=== PATIENT | male | born 1995 | race Caucasian/White ===

== ENCOUNTER 2018-03-27 12:51 | Emergency (ER) | payer SELFPAY, OTHER ==
[2018-03-27] MEDS: IBUPROFEN 800 MG TAB PO (13:35)
== END 2018-03-27 13:38 | disposition home or self-care (01) ==
LOC: M ED 12:51
DX: M25.511 Pain in right shoulder (principal); Z88.0 Allergy status to penicillin
CPT/HCPCS: 99282

== ENCOUNTER 2018-04-27 09:15 | Inpatient (IN) | payer SELFPAY ==
[2018-04-27] MEDS: OXAZEPAM 10 MG CAP PO (09:30)
[2018-04-27 09:44] LABS: HEMATOCRIT 43.1 % (42.0-52.0); MEAN CORPUSCULAR HEMOGLOBIN 31.7 pg (27.0-33.0); MEAN CORPUSCULAR HGB CONC 34.8 g/dl (32.0-36.5); MEAN CORPUSCULAR VOLUME 91.1 fl (80.0-96.0); PLATELET COUNT, AUTOMATED 306 10^3/uL (150-450); RED BLOOD COUNT 4.73 10^6/uL (4.30-6.10); RED CELL DISTRIBUTION WIDTH 13.1 % (11.5-14.5); WHITE BLOOD COUNT 9.7 10^3/uL (4.0-10.0)
[2018-04-27 10:30] LABS: ACETAMINOPHEN LEVEL < 2.0 UG/ML (10.0-30.0); ALBUMIN 4.3 GM/DL (3.2-5.2); ALBUMIN/GLOBULIN RATIO 1.34 (1.00-1.93); ALKALINE PHOSPHATASE 89 U/L (45-117); ALT/SGPT 28 U/L (12-78); ANION GAP 11 MEQ/L (8-16); AST/SGOT 19 U/L (7-37); BILIRUBIN,DIRECT < 0.1 MG/DL (0.0-0.2); BILIRUBIN,TOTAL 0.3 MG/DL (0.2-1.0); BLOOD UREA NITROGEN 11 MG/DL (7-18); CALCIUM LEVEL 8.9 MG/DL (8.5-10.1); CARBON DIOXIDE LEVEL 22 MEQ/L (21-32); CHLORIDE LEVEL 111 MEQ/L (98-107); CREATININE FOR GFR 1.09 MG/DL (0.70-1.30); ETHYL ALCOHOL (ETHANOL) 0.169 % (0.000-0.010); GLOMERULAR FILTRATION RATE > 60.0 (>60); GLUCOSE, FASTING 83 MG/DL (70-100); POTASSIUM SERUM 3.9 MEQ/L (3.5-5.1); SALICYLATE LEVEL 4.1 MG/DL (5.0-30.0); SODIUM LEVEL 144 MEQ/L (136-145); TOTAL PROTEIN 7.5 GM/DL (6.4-8.2)
[2018-04-27 11:08] LABS: AMPHETAMINES LEVEL URINE NEGATIVE (NEGATIVE); BARBITURATES URINE NEGATIVE (NEGATIVE); BENZODIAZEPINES URINE NEGATIVE (NEGATIVE); CANNABINOIDS URINE POSITIVE (NEGATIVE); COCAINE METABOLITE URINE POSITIVE (NEGATIVE); METHADONE URINE NEGATIVE (NEGATIVE); OPIATES URINE NEGATIVE (NEGATIVE); PHENCYCLIDINE URINE NEGATIVE (NEGATIVE)
[2018-04-27] MEDS: NICOTINE 21MG/24HR 1 EA TRANSDERMAL TD (15:00)
[2018-04-27] MEDS: IBUPROFEN 600 MG TAB PO (18:00)
[2018-04-27] MEDS ORDERED: MOM 30ML SUSPENSION UDC PO (20:30)
[2018-04-27] MEDS ORDERED: ACETAMINOPHEN TAB 650MG DOSE (2X325MG) PO (20:30)
[2018-04-27] MEDS ORDERED: MAALOX 30 ML SUSP *UDC PO (20:30)
[2018-04-27] MEDS: THIAMINE 100 MG TAB PO (21:00)
[2018-04-27] MEDS: OLANZapine ORAL DISINTEGRATING TAB 5MG PO (21:03)
[2018-04-28] MEDS: MULTIVITAMINS/MINERALS THERAP 1 TAB PO (08:09)
[2018-04-28] MEDS: FOLIC ACID 1 MG TAB PO (08:09)
[2018-04-28] MEDS: THIAMINE 100 MG TAB PO ×2 (08:09→20:50)
[2018-04-28] MEDS: OLANZapine ORAL DISINTEGRATING TAB 5MG PO ×2 (10:09→20:50)
[2018-04-28] MEDS: NICOTINE 21MG/24HR 1 EA TRANSDERMAL TD (11:09)
[2018-04-28] MEDS ORDERED: IBUPROFEN 400 MG TAB PO (23:30)
[2018-04-29] MEDS: NICOTINE 21MG/24HR 1 EA TRANSDERMAL TD (08:17)
[2018-04-29] MEDS: MULTIVITAMINS/MINERALS THERAP 1 TAB PO (08:17)
[2018-04-29] MEDS: THIAMINE 100 MG TAB PO ×2 (08:17→21:43)
[2018-04-29] MEDS: FOLIC ACID 1 MG TAB PO (08:17)
[2018-04-29] MEDS: OLANZapine ORAL DISINTEGRATING TAB 5MG PO ×2 (08:17→21:43)
[2018-04-29] MEDS: traZODone 50 MG TAB PO (22:53)
[2018-04-30] MEDS: NICOTINE 21MG/24HR 1 EA TRANSDERMAL TD (08:22)
[2018-04-30] MEDS: THIAMINE 100 MG TAB PO (08:22)
[2018-04-30] MEDS: LORazepam 2 MG TAB PO (08:23)
[2018-04-30] MEDS: FOLIC ACID 1 MG TAB PO (08:23)
[2018-04-30] MEDS: MULTIVITAMINS/MINERALS THERAP 1 TAB PO (08:23)
== END 2018-04-30 13:50 | disposition home or self-care (01) | DRG 754 ==
LOC: M PSY 04-28 18:26 → M ED 09:15 → M ED INP 20:25 → M PSY 22:46
DX: F32.9 Major depressive disorder, single episode, unspecified (principal); F10.10 Alcohol abuse, uncomplicated; F12.10 Cannabis abuse, uncomplicated; F17.210 Nicotine dependence, cigarettes, uncomplicated; M79.671 Pain in right foot; F14.10 Cocaine abuse, uncomplicated; Z63.4 Disappearance and death of family member; Z88.0 Allergy status to penicillin

== ENCOUNTER 2018-06-03 13:09 | Emergency (ER) | payer MEDICAID, SELFPAY ==
[2018-06-03 14:41] LABS: CONTROL LINE MONO INT CTR LINE PRESENT; MONO SCRN POSITIVE (NEGATIVE)
== END 2018-06-03 15:08 | disposition home or self-care (01) ==
LOC: M ED 13:09
DX: B27.90 Infectious mononucleosis, unspecified without complication (principal); F33.9 Major depressive disorder, recurrent, unspecified; Z88.0 Allergy status to penicillin; F17.210 Nicotine dependence, cigarettes, uncomplicated
CPT/HCPCS: 86308

== ENCOUNTER 2018-06-06 02:51 | Emergency (ER) | payer MEDICAID, SELFPAY ==
[2018-06-06 03:17] LABS: BEDSIDE GLUCOSE 87 MG/DL (70-105)
[2018-06-06 03:18] LABS: HEMATOCRIT 45.3 % (42.0-52.0); HEMOGLOBIN 15.4 g/dl (13.5-17.5); MEAN CORPUSCULAR HEMOGLOBIN 31.1 pg (27.0-33.0); MEAN CORPUSCULAR VOLUME 91.5 fl (80.0-96.0); PLATELET COUNT, AUTOMATED 215 10^3/uL (150-450); RED BLOOD COUNT 4.95 10^6/uL (4.30-6.10); WHITE BLOOD COUNT 10.5 10^3/uL (4.0-10.0)
[2018-06-06 03:19] LABS: ADD MANUAL DIFFER YES; DIFF SLIDE NUMBER 99; POSITIVE DIFF POS FLAG; POSITIVE MORPH POS FLAG
[2018-06-06] MEDS: NS 1,000 ML IV ×2 (03:30)
[2018-06-06 03:39] LABS: ATYPICAL LYMPH 4 % (0-5); EOSINOPHILS 1 % (0-5); LYMPHOCYTES 53 % (16-52); MONOCYTES 5 % (0-8); NEUTROPHILS 37 % (35-75); PLATELET ESTIMATE NORMAL (NORMAL)
[2018-06-06] MEDS: CHARCOAL ACTIVATED LIQUID 25 GM/120 ML BTL PO ×2 (03:39)
[2018-06-06 04:15] LABS: ALBUMIN 3.6 GM/DL (3.2-5.2); ALBUMIN/GLOBULIN RATIO 0.88 (1.00-1.93); ALKALINE PHOSPHATASE 141 U/L (45-117); ALT/SGPT 72 U/L (12-78); ANION GAP 9 MEQ/L (8-16); AST/SGOT 27 U/L (7-37); BILIRUBIN,DIRECT < 0.1 MG/DL (0.0-0.2); BILIRUBIN,TOTAL 0.2 MG/DL (0.2-1.0); BLOOD UREA NITROGEN 12 MG/DL (7-18); CALCIUM LEVEL 8.2 MG/DL (8.5-10.1); CARBON DIOXIDE LEVEL 26 MEQ/L (21-32); CHLORIDE LEVEL 110 MEQ/L (98-107); CPK CREATINE PHOSPHOKINASE 68 U/L (39-308); CREATININE FOR GFR 1.01 MG/DL (0.70-1.30); ETHYL ALCOHOL (ETHANOL) 0.156 % (0.000-0.010); GLOMERULAR FILTRATION RATE > 60.0 (>60); GLUCOSE, FASTING 90 MG/DL (70-100); POTASSIUM SERUM 3.9 MEQ/L (3.5-5.1); SALICYLATE LEVEL 4.4 MG/DL (5.0-30.0); SODIUM LEVEL 145 MEQ/L (136-145); TOTAL PROTEIN 7.7 GM/DL (6.4-8.2)
[2018-06-06 04:16] LABS: ACETAMINOPHEN LEVEL < 2.0 UG/ML (10.0-30.0)
[2018-06-06 04:24] LABS: AMPHETAMINES LEVEL URINE POSITIVE (NEGATIVE); BARBITURATES URINE NEGATIVE (NEGATIVE); BENZODIAZEPINES URINE NEGATIVE (NEGATIVE); CANNABINOIDS URINE POSITIVE (NEGATIVE); COCAINE METABOLITE URINE NEGATIVE (NEGATIVE); METHADONE URINE NEGATIVE (NEGATIVE); OPIATES URINE NEGATIVE (NEGATIVE); PHENCYCLIDINE URINE NEGATIVE (NEGATIVE)
[2018-06-06 05:28] LABS: GOLD SPEC TUBE RECIEVED
== END 2018-06-06 16:53 ==
LOC: M ED 02:51
DX: R45.851 Suicidal ideations (principal); T40.2X2A Poisoning by other opioids, intentional self-harm, initial encounter; T51.92XA Toxic effect of unspecified alcohol, intentional self-harm, initial encounter; Y92.9 Unspecified place or not applicable; Y93.9 Activity, unspecified; F12.10 Cannabis abuse, uncomplicated; F11.10 Opioid abuse, uncomplicated; Z72.0 Tobacco use; Z88.0 Allergy status to penicillin
CPT/HCPCS: 93005

== ENCOUNTER → 2018-11-30 | Outpatient (CLI) | payer MEDICAID, OTHER ==
[~2018-11-30] MED LIST: BENA25CA4 PO; HYDR-3363 PO; IBUP-1022 PO; MAGICMW MT
== END ==
LOC: M OUTALCOH 08:42
PROVIDERS: ATTEND Psychiatry & Neurology Psychiatry
DX: F12.10 Cannabis abuse, uncomplicated (principal); F10.20 Alcohol dependence, uncomplicated

== ENCOUNTER → 2018-12-11 | Outpatient (RCR) | payer MEDICAID, SELFPAY | LOC: M OUTALCOH 14:53 | PROVIDERS: ATTEND Psychiatry & Neurology Psychiatry | DX: F12.10 Cannabis abuse, uncomplicated (principal); F10.20 Alcohol dependence, uncomplicated; F17.200 Nicotine dependence, unspecified, uncomplicated ==

== ENCOUNTER 2019-01-09 16:00 | Outpatient (RCR) | payer MEDICAID, SELFPAY | END 2019-01-11 | LOC: M OUTALCOH 16:00 | PROVIDERS: ATTEND Psychiatry & Neurology Psychiatry | DX: F12.10 Cannabis abuse, uncomplicated (principal); F10.20 Alcohol dependence, uncomplicated; F17.200 Nicotine dependence, unspecified, uncomplicated ==

== ENCOUNTER 2019-01-23 16:00 | Outpatient (RCR) | payer MEDICAID | END 2019-02-10 | LOC: M OUTALCOH 16:00 | PROVIDERS: ATTEND Psychiatry & Neurology Psychiatry | DX: F12.10 Cannabis abuse, uncomplicated (principal); F10.20 Alcohol dependence, uncomplicated; F17.200 Nicotine dependence, unspecified, uncomplicated ==

== ENCOUNTER → 2019-10-25 | Outpatient (REF) | payer OTHER ==
[2019-10-25 17:27] LABS: INFLUENZA A AMPLIFICATION NEGATIVE (NEGATIVE); INFLUENZA B AMPLIFICATION NEGATIVE (NEGATIVE)
== END ==
LOC: M LAB REF 16:17
PROVIDERS: ATTEND Physician Assistant Medical
DX: J11.1 Influenza due to unidentified influenza virus with other respiratory manifestations (principal)

== ENCOUNTER 2019-11-09 22:53 | Emergency (ER) | payer OTHER ==
[~2019-11-09] VITALS: Ht 182.9 cm; Wt 81.8 kg
[2019-11-09] MEDS ORDERED: HALOPERIDOL 5 MG/ML VIAL (J1630) IM STA (23:05)
[2019-11-09] MEDS ORDERED: diphenhydrAMINE INJ 50MG/ML VIAL (J1200) IM STA (23:05)
[2019-11-09] MEDS ORDERED: diphenhydrAMINE INJ 50MG/ML VIAL (J1200) As Ordered ONE (23:05)
[2019-11-09] MEDS ORDERED: HALOPERIDOL 5 MG/ML VIAL (J1630) As Ordered ONE (23:06)
[2019-11-10 01:02] LABS: AMPHETAMINES LEVEL URINE NEGATIVE (NEGATIVE); BARBITURATES URINE NEGATIVE (NEGATIVE); BENZODIAZEPINES URINE NEGATIVE (NEGATIVE); CANNABINOIDS URINE POSITIVE (NEGATIVE); COCAINE METABOLITE URINE NEGATIVE (NEGATIVE); METHADONE URINE NEGATIVE (NEGATIVE); OPIATES URINE NEGATIVE (NEGATIVE); PHENCYCLIDINE URINE NEGATIVE (NEGATIVE)
[2019-11-10] MEDS ORDERED: HALOPERIDOL 5 MG/ML VIAL (J1630) IM STA (01:03)
[2019-11-10 01:40] VITALS: BP 131/71
== END 2019-11-10 01:53 | disposition left against medical advice (07) ==
LOC: M ED 22:53
DX: F10.229 Alcohol dependence with intoxication, unspecified (principal); Y90.1 Blood alcohol level of 20-39 mg/100 ml; F91.9 Conduct disorder, unspecified; Z88.0 Allergy status to penicillin
CPT/HCPCS: 36415; 80307; 96372; 99285; G0480; J1200; J1630

== ENCOUNTER → 2020-01-08 | Outpatient (CLI) | payer OTHER ==
--- NOTE | 2020-01-08 15:01 | REP ---
RIGHT GREAT TOE SERIES: Four views. HISTORY: Question foreign body right great toe. FINDINGS: Comparison study April 27, 2018. Four views of the right great toe show no evidence of opaque foreign body or fracture. Bones, joints and soft tissues are unremarkable. IMPRESSION: No evidence of fracture or opaque foreign body. Electronically Signed by Yoan Dias MD 01/08/2020 03:27 P
== END ==
LOC: M RAD 14:06
PROVIDERS: ATTEND Physician Assistant
DX: M79.674 Pain in right toe(s) (principal)

== ENCOUNTER 2020-01-25 02:12 | Emergency (ER) | payer OTHER ==
[~2020-01-25] VITALS: Ht 180.3 cm; Wt 81.8 kg
[2020-01-25 02:13] VITALS: BP 121/89
[2020-01-25] MEDS ORDERED: LAMO25TA4 (02:21)
[2020-01-25] MEDS ORDERED: LIDOCAINE 1% MDV 20ML VIAL As Ordered ONE (02:57)
[2020-01-25] MEDS ORDERED: LIDOCAINE 1% MDV 50ML VIAL SC ONE (03:00)
== END 2020-01-25 03:35 | disposition home or self-care (01) ==
LOC: M ED 02:12
DX: S61.012A Laceration without foreign body of left thumb without damage to nail, initial encounter (principal); W26.0XXA Contact with knife, initial encounter; Y92.89 Other specified places as the place of occurrence of the external cause; Y93.89 Activity, other specified; Y99.9 Unspecified external cause status; F17.218 Nicotine dependence, cigarettes, with other nicotine-induced disorders; Z88.0 Allergy status to penicillin; F32.9 Major depressive disorder, single episode, unspecified

== ENCOUNTER 2021-01-16 06:57 | Emergency (ER) | payer OTHER ==
[~2021-01-16] VITALS: Ht 182.9 cm; Wt 69.7 kg
[~2021-01-16 06:57] MED LIST changes: +LAMO25TA4
[2021-01-16] MEDS ORDERED: LORazepam 2 MG/ML VIAL IV STA (07:03)
[2021-01-16] MEDS ORDERED: NS 1,000 ML IV ONE ×3 (07:05→09:40)
[2021-01-16 07:50] LABS: BASO # 0.1 10^3/uL (0.0-0.2); BASO % 0.4 % (0.0-1.0); EOS % 0.3 % (0.0-3.0); HEMOGLOBIN 13.2 g/dl (13.5-17.5); LYMPH % 15.7 % (24.0-44.0); MEAN CORPUSCULAR HEMOGLOBIN 29.9 pg (27.0-33.0); MEAN CORPUSCULAR HGB CONC 33.8 g/dl (32.0-36.5); MEAN CORPUSCULAR VOLUME 88.2 fl (80.0-96.0); MONO # 1.4 10^3/uL (0.0-0.8); MONO % 10.6 % (2.0-8.0); NEUTROPHILS # 9.4 10^3/uL (1.5-8.5); NEUTROPHILS % 72.5 % (36.0-66.0); PLATELET COUNT, AUTOMATED 293 10^3/uL (150-450); RED BLOOD COUNT 4.42 10^6/uL (4.30-6.10); WHITE BLOOD COUNT 12.9 10^3/uL (4.0-10.0)
[2021-01-16 08:34] LABS: ACETAMINOPHEN LEVEL < 2.0 UG/ML (10.0-30.0); ALT/SGPT 468 U/L (12-78); BILIRUBIN,DIRECT 0.6 MG/DL (0.0-0.2); BILIRUBIN,TOTAL 1.4 MG/DL (0.2-1.0); BLOOD UREA NITROGEN 19 MG/DL (7-18); CALCIUM LEVEL 8.9 MG/DL (8.5-10.1); CARBON DIOXIDE LEVEL 25 MEQ/L (21-32); CHLORIDE LEVEL 109 MEQ/L (98-107); CPK CREATINE PHOSPHOKINASE 420 U/L (39-308); CREATININE FOR GFR 1.17 MG/DL (0.70-1.30); ETHYL ALCOHOL (ETHANOL) < 0.003 % (0.000-0.010); GLOMERULAR FILTRATION RATE > 60.0 (>60); GLUCOSE, FASTING 65 MG/DL (70-100); POTASSIUM SERUM 3.8 MEQ/L (3.5-5.1); SALICYLATE LEVEL < 1.7 MG/DL (5.0-30.0); SODIUM LEVEL 143 MEQ/L (136-145); THYROID STIMULATING HORMONE 0.691 uIU/ML (0.358-3.740); TOTAL PROTEIN 7.2 GM/DL (6.4-8.2)
[2021-01-16 10:04] VITALS: BP 145/63
[2021-01-16 10:52] LABS: AMPHETAMINES LEVEL URINE POSITIVE (NEGATIVE); BARBITURATES URINE NEGATIVE (NEGATIVE); BENZODIAZEPINES URINE NEGATIVE (NEGATIVE); CANNABINOIDS URINE POSITIVE (NEGATIVE); COCAINE METABOLITE URINE NEGATIVE (NEGATIVE); METHADONE URINE NEGATIVE (NEGATIVE); OPIATES URINE NEGATIVE (NEGATIVE); PHENCYCLIDINE URINE NEGATIVE (NEGATIVE)
--- NOTE | 2021-01-16 11:11 | REP ---
INDICATION: abnormal lfts COMPARISON: None. TECHNIQUE: Real time cook scale ultrasound examination using curved array transducer. FINDINGS: Liver is normal in contour, size, and echogenicity without focal hepatic lesions identified. Pancreas is incompletely evaluated due to interposed bowel gas. The gallbladder is normal and without gallstones, wall thickening, or pericholecystic fluid. No biliary ductal dilatation is appreciated and the common bile duct measures 4.9 mm diameter. Right kidney is normal in reniform shape without hydronephrosis and measures 10.9 x 5.2 x 4.5 cm. No ascites in the visualized right upper quadrant. IMPRESSION: Normal limited right upper quadrant ultrasound <Electronically signed by Florencio Calixto > 01/16/21 1102
--- NOTE | 2021-01-16 19:47 | ECGEPIP ---
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
[2021-01-18 12:21] LABS: HEPATITIS B SURFACE ANTIGEN NEGATIVE (NEGATIVE)
[2021-01-18 12:48] LABS: HEPATITIS B CORE ANTIBODY IGM NEGATIVE (NEGATIVE)
[2021-01-18 12:51] LABS: HEPATITIS A ANTIBODY IGM NEGATIVE (NEGATIVE)
[2021-01-18 13:07] LABS: HEPATITIS C VIRUS ABY INDEX 2.8 INDEX (<0.8)
== END 2021-01-16 11:45 | disposition left against medical advice (07) ==
LOC: M ED 06:57
DX: F19.10 Other psychoactive substance abuse, uncomplicated (principal); R79.89 Other specified abnormal findings of blood chemistry; Z53.9 Procedure and treatment not carried out, unspecified reason; F41.9 Anxiety disorder, unspecified; F32.9 Major depressive disorder, single episode, unspecified; Z88.1 Allergy status to other antibiotic agents; F17.200 Nicotine dependence, unspecified, uncomplicated
CPT/HCPCS: 36415; 76705; 80048; 80076; 80143; 80307; 82077; 82550; 83605; 84443; 85025; 86705; 86709; 86803; 87340; 87521; 93005; 93041; 94760; 96361; 96374; 99285; J2060

== ENCOUNTER 2021-01-16 22:52 | Emergency (ER) | payer OTHER ==
[~2021-01-16] VITALS: Ht 182.9 cm; Wt 72.1 kg
[2021-01-17 06:31] VITALS: BP 136/62
== END 2021-01-17 06:32 | disposition home or self-care (01) ==
LOC: M ED 22:52
DX: F22 Delusional disorders (principal); F19.10 Other psychoactive substance abuse, uncomplicated; Z88.0 Allergy status to penicillin

== ENCOUNTER 2021-02-22 00:12 | Emergency (ER) | payer OTHER ==
[~2021-02-22] VITALS: Ht 182.9 cm; Wt 72.7 kg
[2021-02-22] MEDS ORDERED: diphenhydrAMINE 50MG/ML VIAL (J1200) IM STA (00:25)
[2021-02-22] MEDS ORDERED: OLANZapine INTRAMUSCULAR 10MG VIAL IM ONE (00:25)
[2021-02-22] MEDS ORDERED: LORazepam 2 MG/ML VIAL IM STA (00:25)
[2021-02-22] MEDS ORDERED: LORazepam 2 MG/ML VIAL As Ordered ONE (00:34)
[2021-02-22 00:55] LABS: HEMATOCRIT 41.4 % (42.0-52.0); MEAN CORPUSCULAR HGB CONC 33.8 g/dl (32.0-36.5); MEAN CORPUSCULAR VOLUME 88.7 fl (80.0-96.0); PLATELET COUNT, AUTOMATED 263 10^3/uL (150-450); RED BLOOD COUNT 4.67 10^6/uL (4.30-6.10); WHITE BLOOD COUNT 7.5 10^3/uL (4.0-10.0)
[2021-02-22 01:32] LABS: ACETAMINOPHEN LEVEL < 2.0 UG/ML (10.0-30.0); ALT/SGPT 49 U/L (12-78); BILIRUBIN,DIRECT 0.2 MG/DL (0.0-0.2); BILIRUBIN,TOTAL 0.5 MG/DL (0.2-1.0); BLOOD UREA NITROGEN 16 MG/DL (7-18); CALCIUM LEVEL 9.1 MG/DL (8.5-10.1); CARBON DIOXIDE LEVEL 32 MEQ/L (21-32); CHLORIDE LEVEL 102 MEQ/L (98-107); CPK CREATINE PHOSPHOKINASE 192 U/L (39-308); ETHYL ALCOHOL (ETHANOL) < 0.003 % (0.000-0.010); GLOMERULAR FILTRATION RATE > 60.0 (>60); GLUCOSE, FASTING 73 MG/DL (70-100); POTASSIUM SERUM 3.8 MEQ/L (3.5-5.1); SALICYLATE LEVEL < 1.7 MG/DL (5.0-30.0); SODIUM LEVEL 139 MEQ/L (136-145); TOTAL PROTEIN 7.3 GM/DL (6.4-8.2)
[2021-02-22 06:02] VITALS: BP 112/65
== END 2021-02-22 06:05 | disposition home or self-care (01) ==
LOC: EDBD 00:12 → M ED 00:12
DX: F19.129 Other psychoactive substance abuse with intoxication, unspecified (principal); F22 Delusional disorders; F11.10 Opioid abuse, uncomplicated; Z88.0 Allergy status to penicillin
CPT/HCPCS: 80048; 80076; 80143; 82077; 82550; 84443; 85027; 96372; 99285; J1200; J2060

== ENCOUNTER 2021-02-25 15:34 | Emergency (ER) | payer OTHER ==
[~2021-02-25] VITALS: Ht 182.9 cm; Wt 68.2 kg
[2021-02-25 20:49] LABS: BASO # 0.1 10^3/uL (0.0-0.2); BASO % 0.9 % (0.0-1.0); EOS # 0.1 10^3/uL (0.0-0.5); EOS % 1.9 % (0.0-3.0); HEMATOCRIT 41.4 % (42.0-52.0); HEMOGLOBIN 14.2 g/dl (13.5-17.5); LYMPH # 1.6 10^3/uL (1.5-5.0); LYMPH % 28.6 % (24.0-44.0); MEAN CORPUSCULAR HEMOGLOBIN 30.7 pg (27.0-33.0); MEAN CORPUSCULAR HGB CONC 34.3 g/dl (32.0-36.5); MEAN CORPUSCULAR VOLUME 89.4 fl (80.0-96.0); MONO # 0.7 10^3/uL (0.0-0.8); MONO % 11.4 % (2.0-8.0); NEUTROPHILS # 3.3 10^3/uL (1.5-8.5); PLATELET COUNT, AUTOMATED 273 10^3/uL (150-450); RED BLOOD COUNT 4.63 10^6/uL (4.30-6.10); WHITE BLOOD COUNT 5.7 10^3/uL (4.0-10.0)
[2021-02-25 20:52] LABS: ALBUMIN 3.6 GM/DL (3.2-5.2); BILIRUBIN,DIRECT 0.2 MG/DL (0.0-0.2); BILIRUBIN,TOTAL 0.4 MG/DL (0.2-1.0); C REACTIVE PROTEIN QUANTITATIV 0.68 MG/DL (0.00-0.30); TOTAL PROTEIN 6.8 GM/DL (6.4-8.2)
[2021-02-25] MEDS ORDERED: BACT800T5 PO (20:55)
[2021-02-25 21:14] VITALS: BP 133/73
[2021-02-25 21:27] LABS: ERYTHROCYTE SEDIMENTATION RATE 6 mm/hr (0-15)
== END 2021-02-25 21:51 | disposition home or self-care (01) ==
LOC: M ED 15:34
DX: F19.10 Other psychoactive substance abuse, uncomplicated (principal); F42.4 Excoriation (skin-picking) disorder; Z86.19 Personal history of other infectious and parasitic diseases; F17.200 Nicotine dependence, unspecified, uncomplicated; Z88.0 Allergy status to penicillin

== ENCOUNTER 2021-04-29 20:14 | Emergency (ER) | payer OTHER ==
[~2021-04-29] VITALS: Ht 182.9 cm; Wt 68.2 kg
[~2021-04-29 20:14] MED LIST changes: +BACT800T5 PO
[2021-04-29] MEDS ORDERED: BOOSTRIX/ADACEL VACCINE (DIPHTH/PERTUSS/ACELL/TETANUS) 0.5ML SYR IM ONE (21:20)
[2021-04-29 21:46] LABS: HEMATOCRIT 41.3 % (42.0-52.0); HEMOGLOBIN 14.2 g/dl (13.5-17.5); MEAN CORPUSCULAR HEMOGLOBIN 30.7 pg (27.0-33.0); MEAN CORPUSCULAR HGB CONC 34.4 g/dl (32.0-36.5); MEAN CORPUSCULAR VOLUME 89.2 fl (80.0-96.0); PLATELET COUNT, AUTOMATED 236 10^3/uL (150-450); RED BLOOD COUNT 4.63 10^6/uL (4.30-6.10); WHITE BLOOD COUNT 11.2 10^3/uL (4.0-10.0)
[2021-04-29 22:24] LABS: ACETAMINOPHEN LEVEL < 2.0 UG/ML (10.0-30.0); ALBUMIN 3.1 GM/DL (3.2-5.2); ALT/SGPT 58 U/L (12-78); BILIRUBIN,DIRECT < 0.1 MG/DL (0.0-0.2); BILIRUBIN,TOTAL 0.2 MG/DL (0.2-1.0); BLOOD UREA NITROGEN 14 MG/DL (7-18); CALCIUM LEVEL 8.5 MG/DL (8.5-10.1); CARBON DIOXIDE LEVEL 29 MEQ/L (21-32); CHLORIDE LEVEL 107 MEQ/L (98-107); CREATININE FOR GFR 0.67 MG/DL (0.70-1.30); ETHYL ALCOHOL (ETHANOL) < 0.003 % (0.000-0.010); GLOMERULAR FILTRATION RATE > 60.0 (>60); GLUCOSE, FASTING 95 MG/DL (70-100); POTASSIUM SERUM 4.1 MEQ/L (3.5-5.1); SALICYLATE LEVEL < 1.7 MG/DL (5.0-30.0); SODIUM LEVEL 139 MEQ/L (136-145); THYROID STIMULATING HORMONE 0.854 uIU/ML (0.358-3.740); TOTAL PROTEIN 6.5 GM/DL (6.4-8.2)
[2021-04-30 00:02] LABS: AMPHETAMINES LEVEL URINE POSITIVE (NEGATIVE); BARBITURATES URINE NEGATIVE (NEGATIVE); BENZODIAZEPINES URINE NEGATIVE (NEGATIVE); CANNABINOIDS URINE NEGATIVE (NEGATIVE); COCAINE METABOLITE URINE NEGATIVE (NEGATIVE); METHADONE URINE NEGATIVE (NEGATIVE); OPIATES URINE NEGATIVE (NEGATIVE); PHENCYCLIDINE URINE NEGATIVE (NEGATIVE)
--- NOTE | 2021-04-30 05:43 | ECGEPIP ---
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
[2021-04-30] MEDS ORDERED: NICOTINE 21MG/24HR 1 EA TRANSDERMAL TD ONE (11:35)
[2021-04-30] MEDS ORDERED: LORazepam 1 MG TAB PO ONE (11:35)
[2021-04-30 19:29] LABS: RSV AMPLIFICATION NEGATIVE (NEGATIVE)
[2021-04-30] MEDS ORDERED: hydrOXYzine 50 MG TAB PO ONE (23:10)
[2021-05-01 06:36] VITALS: BP 134/73
== END 2021-05-01 06:40 ==
LOC: M ED 20:14
DX: F19.10 Other psychoactive substance abuse, uncomplicated (principal); R45.851 Suicidal ideations; S00.01XA Abrasion of scalp, initial encounter; W22.8XXA Striking against or struck by other objects, initial encounter; Y92.89 Other specified places as the place of occurrence of the external cause; Y93.89 Activity, other specified; Y99.9 Unspecified external cause status; F32.9 Major depressive disorder, single episode, unspecified; Z88.0 Allergy status to penicillin

== ENCOUNTER 2021-07-25 23:25 | Emergency (ER) | payer OTHER ==
--- OUTSIDE RECORDS SUMMARY | 2021-07-25 23:30 | CCD | Continuity of Care Document ---
Author Author Nurse 2, Manuel Mora Organization Unknown Address [address] [place] [address] Phone Unavailable Problems Description No Information Available Social History Type Date Description Comments Sex Unknown Allergies, Adverse Reactions, Alerts Description No Information Available Medications Description No Information Available Immunizations Description No Information Available Vital Signs Date Vital Result Comment 08/18/2020 11:31am BP Systolic 107 mmHg BP Diastolic 67 mmHg Heart Rate 74 /min Respiratory Rate 20 /min Body Temperature 97.9 F Weight 169.00 lb Results Description No Information Available Procedures Description No Information Available Medical Devices Description No Information Available Encounters Description No Information Available Assessments Description No Information Available Plan of Treatment No Information Available Functional Status Description No Information Available Mental Status Description No Information Available Referrals Description No Information Available
--- OUTSIDE RECORDS SUMMARY | 2021-07-25 23:30 | CCD ---
Author Author [facility] Organization [facility] Address Unknown Phone Unavailable Care Team Providers Care Brewer Helper Name Role Phone JORI RITCHIE MD Unavailable Unavailable BILJORI DOUGLAS MD Unavailable Unavailable JORI RITCHIE MD Unavailable Unavailable JORI RITCHIE MD Unavailable Unavailable JORI RITCHIE MD Unavailable Unavailable JORI RITCHIE MD Unavailable Unavailable JORI RITCHIE MD Unavailable Unavailable JORI RITCHIE MD Unavailable Unavailable JORI RITCHIE MD Unavailable Unavailable BILJROI DOUGLAS MD Unavailable Unavailable Chuck M Danyelle RADIO DIVISION CAPTAIN Unavailable Unavailable Chuck M Danyelle RADIO DIVISION CAPTAIN Unavailable Unavailable Chuck M Danyelle RADIO DIVISION CAPTAIN Unavailable Unavailable Chuck, M Danyelle RADIO DIVISION CAPTAIN Unavailable Unavailable Chuck M Danyelle RADIO DIVISION CAPTAIN Unavailable Unavailable Chuck, M Danyelle RADIO DIVISION CAPTAIN Unavailable Unavailable Chuck, M Danyelle RADIO DIVISION CAPTAIN Unavailable Unavailable Chuck, M Danyelle RADIO DIVISION CAPTAIN Unavailable Unavailable Chuck, M Danyelle RADIO DIVISION CAPTAIN Unavailable Unavailable Chuck, M Danyelle RADIO DIVISION CAPTAIN Unavailable Unavailable Chuck, M Danyelle RADIO DIVISION CAPTAIN Unavailable Unavailable Chuck, M Danyelle RADIO DIVISION CAPTAIN Unavailable Unavailable Chuck, M Danyelle RADIO DIVISION CAPTAIN Unavailable Unavailable Re-disclosure Warning The records that you are about to access may contain information from federally-assisted alcohol or drug abuse programs. If such information is present, then the following federally mandated warning applies: This information has been disclosed to you from records protected by federal confidentiality rules (42 CFR part 2). The federal rules prohibit you from making any further disclosure of this information unless further disclosure is expressly permitted by the written consent of the person to whom it pertains or as otherwise permitted by 42 CFR part 2. A general authorization for the release of medical or other information is NOT sufficient for this purpose. The Federal rules restrict any use of the information to criminally investigate or prosecute any alcohol or drug abuse patient.The records that you are about to access may contain highly sensitive health information, the redisclosure of which is protected by Article 27-F of the [place] Public Health law. If you continue you may have access to information: Regarding HIV / AIDS; Provided by facilities licensed or operated by the [place] Office of Mental Health; or Provided by the [place] Office for People With Developmental Disabilities. If such information is present, then the following [place] mandated warning applies: This information has been disclosed to you from confidential records which are protected by state law. State law prohibits you from making any further disclosure of this information without the specific written consent of the person to whom it pertains, or as otherwise permitted by law. Any unauthorized further disclosure in violation of state law may result in a fine or retirement sentence or both. A general authorization for the release of medical or other information is NOT sufficient authorization for further disc losure. Allergies and Adverse Reactions Type Description Substance Reaction Status Data Source(s ) Drug allergy asenapine asenapine TONGUE/THROAT SWELLING U [facility] Drug allergy No Known Allergies No Known Allergies [facility] Encounters Encounter Providers Location Date Indications Data Source(s ) Inpatient Attender: JORI RITCHIE MDAdmitter: JORI RITCHIE MD 05/01/2021 08:18:00 AM EDT - 05/04/2021 02:40:00 PM EDT R45.8 [facility] R45.8 SI Patient discharged. Outpatient Attender: JORI RITCHIE MDAdmi tter: JORI RITCHIE MDConsultant: JORI RITCHIE MD 05/01/2021 08:18:00 AM EDT R45.8 SI [facility] R45.8 SI Outpatient Attender: JORI RITCHIE MDAdmi tter: JORI RITCHIE MDConsultant: JORI RITCHIE MD 05/01/2021 08:18:00 AM EDT R45.8 [facility] R45.8 SI Outpatient Attender: Danyelle Woods NPAd mitter: JORI RITCHIE MDConsultant: JORI RITCHIE MD 05/01/2021 08:18:00 AM EDT R45.8 SI [facility] R45.8 SI Medications Medication Brand Name Start Date Product Form Dose Route Admi nistrative Instructions Pharmacy Instructions Status Indications Reaction Description Data Source(s) quetiapine 100 MG Oral Tablet Quetiapine Fumarate 05/19/2021 12:00: 00 AM EDT ORAL active [facility] ([facility]) aripiprazole 5 MG Oral Tablet [Abilify] Abilify 05/19/2021 12:00:0 0 AM EDT ORAL active [facility] ([facility]) buspirone hydrochloride 15 MG Oral Tablet Buspirone HCL 05/19/2021 12:00:00 AM EDT ORAL active [facility] ([facility]) gabapentin 300 MG Oral Capsule Gabapentin 05/19/2021 12:00:00 AM EDT ORAL active [facility] ([facility] Insurance Providers Payer name Policy type / Coverage type Policy ID Covered democrat ID Covered democrat's relationship to gavin Policy Gavin Plan Information MEDICAID M [id number] Self [id number] Managed Care [place] P [id number] S [id number] LOGAN [id number] SP [id number] SELF PAY [place] [id number] SP [id number] Managed Care [place] P [id number] S [id number] Managed Care [place] P UNAVAILABLE S UNAVAILABLE MEDICAID [id number] SP [id number] [facility] [id number] SP [id number] SELF PAY ONLY [id number] SP [id number] SELF PAY ONLY [id number] SP [id number] [facility] [id number] SP [id number] SELF PAY MO2 [facility] [id number] SP [id number] O BLUE [id number] SP [id number] [facility] O [id number] S [id number] BLUE CROSS REESE PLAN [id number] SP [id number] [facility] [id number] SP [id number] 100 Medicaid S [id number] S [id number] [facility] O [id number] S [id number] [place] [id number] SP [id number] Problems, Conditions, and Diagnoses Code Display Name Description Problem Type Effective Dates Data Source(s) F11.10 Opioid abuse, uncomplicated F11.10 - Opioid abus e, uncomplicated Diagnosis 05/01/2021 08:18:00 AM EDT [facility] F15.10 Other stimulant abuse, uncomplicated F15 .10 - Other stimulant abuse, uncomplicated Diagnosis 05/01/2021 08:18:00 AM EDT [facility] F31.9 Bipolar disorder, unspecified F31.9 - Bipolar di sorder, unspecified Diagnosis 05/01/2021 08:18:00 AM EDT [facility] Surgeries/Procedures No Information Results ID Date Data Source [id number] 05/03/2021 09:28:00 AM EDT [facility] [address] [place] [address] HEALTH INFORMATION MANAGEMENT [facility] Psychosocial Summary : [id number] Signed Patient: Taiwo Ely Acct:[id number] Unit: [id number] : 1995 Loc: [facility] Room/Bed: 919-B Age/Sex: 26 / M ADM Date: 05/01/21 cc: General/History - Presenting Problem Presenting Problem: Presenting Problem: The client is a 26-year-old homeless male who presents to [facility] via police after breaking window with his head. Client states that the police had arrested his girlfriend, for trespassing on a property where they were staying at, client was frustrated at the police and decided that he was going to smash his head on a window which ultimately broke it. Background: Client reports heroin and methamphetamine use. Client also states that he has done almost at any drug one can think of. Client appears proud of his drug use and states he does not want any help inpatient or outpatient client states that he will use drugs after leaving [facility]. Client was born and raised in [place], has 5 siblings, denies any abuse or neglect. - Collateral Information Collateral Information: Denies Collateral. - Directives Does the Patient have a Health Care Proxy?: No, Declined at Present - Social/Educational History What is the Highest Grade You Completed in School?: 12 Grade Graduated. What is You Current/Last Place of Employment?: [employer]. What is Your Main Source of Income?: None Do You Have Any Current Legal Issues?: No Any History?: No - Outside Activity Are You Involved in Any Community Service?: No Do You Consider Your self a Social Person?: No Any Interests or Hobbies you do for fun?: Scavenge, package pick up trash, make weapons. Are you part of any anglican/spirtual community?: No - Current Living/Relationship History Current Living Arrangement: Homeless OK to Return Home: Yes Weapons in household: No Currently in a Relationship?: Yes Ever Been ?: No Any Children?: None - Family History Where Were You Born/Raised?: [place] Who Was in Home?: Mother How is Your Relationship Now with Family Members?: Estranged/. Was there Any Abuse/Neglect Growing Up?: No Psychiatric History - Primary Care/Psychiatrist Primary Care Physician: none Psychiatric Treatment History: Inpatient Hospitlization(more than 30 days ago) Patient is currently on medications?: No Patient has a safe medication plan?: No Confirma tion of safe medication administration completed? (: No Patient MMSI-SA score upon admission was:: 13 MMSI-SA Referral Indicated: Yes MMSI-SA Referral Completed: No MMSI-SA What agency was patient referred to:: Client vehemently declines. 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 - Substance Treatment History Ever been hospitalized for alcohol/substance abuse?: No - Current Substance Abuse Current Substance Abuse Identified (w/in last 12 months): Yes (heroin) - Past Substance Abuse History Past Substance Abuse Identified (greater than 12 months ago): Yes - Discussion The quantity frequency of alcohol consumed by pt in the na: N/A The overall severity of the substance use was discussed: N/A Negative physical,emotional,and occupational consequences of: N/A Trauma History - Abuse/Neglect/Exploitation Is there a history of Abuse or Neglect or Exploitation?: No Risk Assessment - Risk to Self Level of Risk to self: No Risk Contract for Safety: Yes Do you have thoughts of hurting yourself?: No Hearing Voices Telling Him/Her to Kill Self: No Family hx of suicide attempt: No - Risk to Others Evaluation of Risk: No Risk Do you have thoughts of hurting someone other than yourself?: No History of Violence: No Ever Have Thoughts of Setting Fires: No Does Client Have Fantasies/Obsessive Thoughts About Others: No - Increasing Risk Factors Factors Increasing Risk: Abuses Drugs and Alcohol, Thought Disturbance, Disorganized Thinking, Denial of Mental Illness - Reducing Risk Factors Factors Reducing Risk: Complies with Tx/Meds Mental Status Treatment - Mental Status Mental Status: alert, oriented x 3 Was Mini-Mental Status Exam Completed?: Yes If completed what was the Mini-Mental Status Exam Score?: 25 - Recommendations Recommendations for Treatment: Client will follow [facility] with [facility] Client will present to [facility] in [place]. Signed By:Alec Pompa <<Signature on File>> Signed Date/Time: 05/03/21 1618 Co-Signer: Nevin ORTIZ STATION ATTENDANT Student Gabbie Co-Signed Date/Time: 05/10/21 1205 Initializing User: Alec MONTALVO [phone] Name Value Range Interpretation Code Description Data Katrin rce(s) Supporting Document(s) ID Date Data Source [id number] 05/02/2021 04:09:00 PM EDT [address] [address] HEALTH INFORMATION MANAGEMENT Consultation : [id number] Signed Patient: Taiwo Ely Acct:[id number] Unit: [id number] : 1995 Loc: [facility] Room/Bed: 919-B Age/Sex: 26 / M ADM Date: 05/01/21 cc: Kadeem Hancock MD PCM Consult Date of Consult: 05/02/21 Consult: Attempted to see Mr. Ely for a history of physical today. Patient had recently received 50 mg of Benadryl, 2 mg of Haldol, and 2 mg Ativan. Patient could not maintain wakefulness. Unable to complete a history of physical or physical exam at this time. PCM Consult Charges Charges Complete Charges Complete: N/A Signed By:Danyelle RODRIGUEZ <<Signature on File>> Signed Date/Time: 05/02/21 1611 Co-Signer: Kadeem Glynn MD Co-Signed Date/Time: 05/02/21 1842 Initializing User: Danyelle RODRIGUEZ 05/02/21 1609 1609 1609 Name Value Range Interpretation Code Description Data Katrin rce(s) Supporting Document(s) ID Date Data Source [id number] 04/30/2021 06:21:00 PM EDT [facility] Name Value Range Interpretation Code Description Data Katrin rce(s) Supporting Document(s) SARS coronavirus 2 RNA [Presence] in Res piratory specimen by ERNESTINA with probe detection NEGATIVE [facility] This lab was ordered by [facility] a nd reported by [facility]. Procedure Social History No Information Vital Signs ID Date Data Source UNK Name Value Range Interpretation Code Description Data Source(s) Systolic blood pressure 107 mm[Hg] 107 mm[Hg] M [facility] ([facility]) Diastolic blood pressure 67 mm[Hg] 67 mm[Hg] [facility] ([facility]) Heart rate 74 /min 74 /min [facility] ([facility]) Respiratory rate 20 /min 20 /min [facility] ( [facility]) Body temperature 97.9 [degF] 97.9 [degF] [facility] ([facility]) Body weight 169.00 [lb_av] 169.00 [lb_av] REENA Mora ([facility])
--- OUTSIDE RECORDS SUMMARY | 2021-07-25 23:30 | CCD | Continuity of Care Document ---
Author Author Nurse 2, Manuel Mora Organization Unknown Address [address] [place] [address] Phone Unavailable Problems Description No Information Available Social History Type Date Description Comments Sex Unknown Allergies and adverse reactions Active Allergies Criticality Reaction | Severity Comments Date Amoxicillin Unable to assess criticality 05/19/2021 Medications Active Medications SIG Qnty Indications Ordering Provide r Date Quetiapine Fumarate 100mg Tablets 1 tab by mouth at bedtime 30tabs Jalil Contreras M.D. 05/19/2021 Abilify 5mg Tablets 1 tab by mouth at bedtime 30tabs Jalil Contreras M.D. 05/19/2021 Buspirone HCL 15mg Tablets 1 by mouth twice a day 60tabs Jalil Contreras M.D. 05/19/2021 Gabapentin 300mg Capsules 1 tab by mouthpo twice a day x 7 days, then one by mouth daily x 7 days then stop 21caps Jalil Contreras M.D. 05/19/2021 Immunizations Description No Information Available Vital Signs [...] No Information Available Referrals Description No Information Available"
--- OUTSIDE RECORDS SUMMARY | 2021-07-26 01:07 | CCD ---
Author Author [facility] Organization [facility] Address Unknown Phone Unavailable Care Team Providers Care Aircraft Structure Mechanic Name Role Phone JORI RITCHIE MD Unavailable Unavailable BILJORI DOUGLAS MD Unavailable Unavailable JORI RITCHIE MD Unavailable Unavailable JROI RITCHIE MD Unavailable Unavailable JORI RITCHIE MD Unavailable Unavailable JORI RITCHIE MD Unavailable Unavailable JORI RITCHIE MD Unavailable Unavailable JORI RITCHIE MD Unavailable Unavailable JORI RITCHIE MD Unavailable Unavailable BILJORI DOUGLAS MD Unavailable Unavailable Chuck M Danyelle WELLNESS AMBASSADOR Unavailable Unavailable Chuck M Danyelle WELLNESS AMBASSADOR Unavailable Unavailable Chuck M Danyelle WELLNESS AMBASSADOR Unavailable Unavailable Chuck, M Danyelle WELLNESS AMBASSADOR Unavailable Unavailable Chuck M Danyelle WELLNESS AMBASSADOR Unavailable Unavailable Chuck, M Danyelle WELLNESS AMBASSADOR Unavailable Unavailable Chuck, M Danyelle WELLNESS AMBASSADOR Unavailable Unavailable Chuck, M Danyelle WELLNESS AMBASSADOR Unavailable Unavailable Chuck, M Danyelle WELLNESS AMBASSADOR Unavailable Unavailable Chuck, M Danyelle WELLNESS AMBASSADOR Unavailable Unavailable Chuck, M Danyelle WELLNESS AMBASSADOR Unavailable Unavailable Chuck, M Danyelle WELLNESS AMBASSADOR Unavailable Unavailable Chuck, M Danyelle WELLNESS AMBASSADOR Unavailable Unavailable Re-disclosure Warning The records that [...] is protected by Article 27-F of the [facility] Public Health law. If you continue you may have access to information: Regarding HIV / AIDS; Provided by facilities licensed or operated by the [facility] Office of Mental Health; or Provided by the [facility] Office for People With Developmental Disabilities. If such information is present, then the following [facility] mandated warning applies: This information has been [...] law may result in a fine or usp sentence or both. A general authorization for the release of medical or other information is NOT sufficient authorization for further disc losure. Allergies and Adverse Reactions Type Description Substance Reaction Status Data Source(s ) Drug allergy asenapine asenapine TONGUE/THROAT SWELLING U [facility] Drug allergy No Known Allergies No Known Allergies [facility] Encounters Encounter Providers Location Date Indications Data Source(s ) Inpatient Attender: JORI RITCHIE MDAdmitter: JORI RITCHIE MD 05/01/2021 08:18:00 AM EDT - 05/04/2021 02:40:00 PM EDT R45.8 [facility] R45.8 SI Patient discharged. Outpatient Attender: JORI RITCHIE MDAdmi tter: JORI RITCHIE MDConsultant: JORI RITCHIE MD 05/01/2021 08:18:00 AM EDT R45.8 SI [facility] R45.8 SI Outpatient Attender: JORI RITCHIE MDAdmi tter: JORI RITCHIE MDConsultant: JORI RITCHIE MD 05/01/2021 08:18:00 AM EDT R45.8 [facility] R45.8 SI Outpatient Attender: Danyelle Woods NPAd mitter: JORI RITCHIE MDConsultant: JORI RITCHIE MD 05/01/2021 08:18:00 AM EDT R45.8 [facility] R45.8 SI Medications Medication Brand Name Start Date Product Form Dose Route Admi nistrative Instructions Pharmacy Instructions Status Indications Reaction Description Data Source(s) quetiapine 100 MG Oral Tablet Quetiapine Fumarate 05/19/2021 12:00: 00 AM EDT ORAL active [facility] ([facility]) aripiprazole 5 MG Oral Tablet [Abilify] Abilify 05/19/2021 12:00:0 0 AM EDT ORAL active [facility] ([facility]) buspirone hydrochloride 15 MG Oral Tablet Buspirone HCL 05/19/2021 12:00:00 AM EDT ORAL active [facility] ([facility]) gabapentin 300 MG Oral Capsule Gabapentin 05/19/2021 12:00:00 AM EDT ORAL active [facility] ([facility]) Insurance Providers Payer name Policy type / Coverage type Policy ID Covered democrat ID Covered democrat's relationship to gavin Policy Gavin Plan Information MEDICAID M [id number] Self [id number] Managed Care [place] P [id number] S [id number] LOGAN [id number] SP [id number] SELF PAY [place] [id number] SP [id number] Managed Care [place] P [id number] S [id number] Managed Care [place] P UNAVAILABLE S UNAVAILABLE MEDICAID [id number] SP [id number] [facility] [id number] SP [id number] SELF PAY ONLY [id number] SP [id number] SELF PAY ONLY [id number] SP [id number] [facility] COMMUNITY PLAN [facility] [id number] SP [id number] SELF PAY [id number] [facility] COMMUNITY PLAN [facility] [id number] SP [id number] O BLUE [id number] SP [id number] [facility] O [id number] S [id number] BLUE CROSS REESE PLAN [id number] SP [id number] [facility] [id number] SP [id number] Medicaid S [id number] S [id number] LOGAN [facility] O [id number] S [id number] [place] [id number] SP [id number] Problems, Conditions, and Diagnoses Code Display Name Description Problem Type Effective Dates Data Source(s) F11.10 Opioid abuse, uncomplicated F11.10 - Opioid abus e, uncomplicated Diagnosis 05/01/2021 08:18:00 AM EDT [facility] F15.10 Other stimulant abuse, uncomplicated F15 .10 - Other stimulant abuse, uncomplicated Diagnosis 05/01/2021 08:18:00 AM EDT [facility] F31.9 Bipolar disorder, unspecified F31.9 - Bipolar di sorder, unspecified Diagnosis 05/01/2021 08:18:00 AM EDT [facility] Surgeries/Procedures No Information Results ID Date Data Source [id number] 05/03/2021 09:28:00 AM EDT [facility] [address] [place] [address] HEALTH INFORMATION MANAGEMENT [facility] Psychosocial Summary : [id number] Signed Patient: Taiwo Ely Acct:[id number] Unit: [id number] : 1995 Loc: [facility] Room/Bed: 919-B Age/Sex: 26 / M [...] Clinic. Client was born and raised in [place], has 5 siblings, denies any abuse or neglect. - Collateral Information Collateral Information: Denies Collateral. - Directives Does the Patient have a Health Care Proxy?: No, Declined at Present - Social/Educational History What is the Highest Grade You Completed in School?: 12 Grade Graduated. What is You Current/Last Place of Employment?: [employer]. What is Your Main Source of Income?: None Do You Have Any Current Legal Issues?: No Any History?: No - Outside Activity Are You Involved in Any Community Service?: No Do You Consider Your self a Social Person?: No Any Interests or Hobbies you do for fun?: Scavenge, bead picker trash, make weapons. Are you part of any jehovah's witness/spirtual community?: No - Current Living/Relationship History Current Living Arrangement: Homeless OK to Return Home: Yes Weapons in household: No Currently in a Relationship?: Yes Ever Been ?: No Any Children?: None - Family History Where Were You Born/Raised?: [employer] Who Was in Home?: Mother How is [...] for Treatment: Client will follow up with [facility] Client will present to [facility] in [place]. Signed By:Alec Pompa <<Signature on File>> Signed Date/Time: 05/03/21 1618 Co-Signer: Nevin ORTIZ SOLDERER Student Gabbie Co-Signed Date/Time: 05/10/21 1205 Initializing User: Alec MONTALVO [phone] Name Value Range Interpretation Code Description Data Katrin rce(s) Supporting Document(s) ID Date Data Source [id number] 05/02/2021 04:09:00 PM EDT [address] [address] HEALTH INFORMATION MANAGEMENT Consultation : [id number] Signed Patient: Taiwo Ely Acct:[id number] Unit: [id number] : 1995 Loc: [facility] Room/Bed: 919-B Age/Sex: 26 / M [...] rce(s) Supporting Document(s) ID Date Data Source [id number] 04/30/2021 06:21:00 PM EDT [facility] Name Value Range Interpretation Code Description Data Katrin rce(s) Supporting Document(s) SARS coronavirus 2 RNA [Presence] in Res piratory specimen by ERNESTINA with probe detection NEGATIVE [facility] This lab was ordered by [facility] a nd reported by [facility]. Procedure Social History No Information Vital Signs ID Date Data Source UNK Name Value Range Interpretation Code Description Data Source(s) Systolic blood pressure 107 mm[Hg] 107 mm[Hg] M [facility] ([facility]) Diastolic blood pressure 67 mm[Hg] 67 mm[Hg] [facility] ([facility]) Heart rate 74 /min 74 /min [facility] ([facility]) Respiratory rate 20 /min 20 /min [facility] ( [facility]) Body temperature 97.9 [degF] 97.9 [degF] [facility] ([facility]) Body weight 169.00 [lb_av] 169.00 [lb_av] REENA Mora ([facility])
== END 2021-07-26 00:15 | disposition left against medical advice (07) ==
LOC: M ED 23:25
DX: Z53.21 Procedure and treatment not carried out due to patient leaving prior to being seen by health care provider (principal)

== ENCOUNTER 2022-11-03 16:21 | Emergency (ER) | payer OTHER ==
[~2022-11-03] VITALS: Ht 182.9 cm; Wt 100.0 kg
[2022-11-03] MEDS ORDERED: LIDOCAINE W/EPINEPHRINE 1% 20ML VIAL SC ONE (17:40)
[2022-11-03 17:41] LABS: AMPHETAMINES LEVEL URINE NEGATIVE (NEGATIVE); BARBITURATES URINE NEGATIVE (NEGATIVE); BENZODIAZEPINES URINE NEGATIVE (NEGATIVE); COCAINE METABOLITE URINE NEGATIVE (NEGATIVE); METHADONE URINE NEGATIVE (NEGATIVE); OPIATES URINE NEGATIVE (NEGATIVE)
[2022-11-03 17:42] LABS: PHENCYCLIDINE URINE NEGATIVE (NEGATIVE)
[2022-11-03 17:47] LABS: CANNABINOIDS URINE POSITIVE (NEGATIVE)
[2022-11-03 19:03] LABS: HEMATOCRIT 40.1 % (42.0-52.0); HEMOGLOBIN 13.2 g/dl (13.5-17.5); MEAN CORPUSCULAR HEMOGLOBIN 29.5 pg (27.0-33.0); MEAN CORPUSCULAR HGB CONC 32.9 g/dl (32.0-36.5); MEAN CORPUSCULAR VOLUME 89.5 fl (80.0-96.0); PLATELET COUNT, AUTOMATED 294 10^3/uL (150-450); RED BLOOD COUNT 4.48 10^6/uL (4.30-6.10); WHITE BLOOD COUNT 11.3 10^3/uL (4.0-10.0)
[2022-11-03 19:18] LABS: ETHYL ALCOHOL (ETHANOL) 0.005 % (0.000-0.010)
[2022-11-03 19:20] LABS: ACETAMINOPHEN LEVEL < 2.0 UG/ML (10.0-20.0); ALBUMIN 3.6 G/DL (3.2-5.2); ALKALINE PHOSPHATASE 126 U/L (46-116); ALT/SGPT 82 U/L (7.0-40); AST/SGOT 34 U/L (<34); BILIRUBIN,DIRECT < 0.1 MG/DL (<0.4); BILIRUBIN,TOTAL 0.2 MG/DL (0.3-1.2); BLOOD UREA NITROGEN 14 MG/DL (9-23); CALCIUM LEVEL 8.6 MG/DL (8.5-10.1); CARBON DIOXIDE LEVEL 25 MMOL/L (20-31); CHLORIDE LEVEL 106 MMOL/L (98-107); CREATININE FOR GFR 0.94 MG/DL (0.70-1.30); GLOMERULAR FILTRATION RATE > 60.0 (>60); GLUCOSE, FASTING 146 MG/DL (60-100); POTASSIUM SERUM 4.4 MMOL/L (3.5-5.1); SALICYLATE LEVEL < 3.0 MG/DL (<30); SODIUM LEVEL 136 MMOL/L (136-145); TOTAL PROTEIN 7.5 G/DL (5.7-8.2)
[2022-11-03 19:22] LABS: THYROID STIMULATING HORMONE 1.194 uIU/ML (0.55-4.78)
[2022-11-03] MEDS ORDERED: DOXYCYCLINE HYCLATE 100MG TABLET PO ONE (19:25)
[2022-11-03] MEDS ORDERED: ACETAMINOPHEN TAB 650MG DOSE (2X325MG) PO ONE (19:25)
[2022-11-03] MEDS ORDERED: IBUPROFEN 600MG TAB PO ONE (19:35)
[2022-11-03 19:48] VITALS: BP 140/76
[2022-11-03] MEDS ORDERED: DOXY-443 PO (20:38)
== END 2022-11-03 21:10 | disposition home or self-care (01) ==
LOC: M ED 16:21
DX: F31.9 Bipolar disorder, unspecified (principal); L02.512 Cutaneous abscess of left hand; F32.A Depression, unspecified; B19.20 Unspecified viral hepatitis C without hepatic coma; F12.10 Cannabis abuse, uncomplicated; F17.200 Nicotine dependence, unspecified, uncomplicated; F19.10 Other psychoactive substance abuse, uncomplicated; Z88.1 Allergy status to other antibiotic agents; Z79.899 Other long term (current) drug therapy

== ENCOUNTER 2024-05-31 15:35 | Emergency (ER) | payer OTHER ==
[~2024-05-31] VITALS: Ht 182.9 cm; Wt 89.9 kg
[~2024-05-31 15:35] MED LIST changes: +DOXY-441 PO
[2024-05-31] MEDS ORDERED: CHLOR50TA (15:52)
[2024-05-31] MEDS ORDERED: RISP3TAB77 (15:52)
[2024-05-31] MEDS ORDERED: CHLO100T30 (15:52)
[2024-05-31] MEDS ORDERED: CLON0.2T (15:52)
[2024-05-31] MEDS ORDERED: GABA-1490 (15:52)
[2024-05-31] MEDS ORDERED: NALO4SPR3 (15:52)
[2024-05-31] MEDS ORDERED: TRAZ-257 (15:52)
[2024-05-31] MEDS ORDERED: ATOM80CA6 (15:52)
[2024-05-31] MEDS ORDERED: DULO1CAP6 (15:52)
[2024-05-31] MEDS: BACTRIM 160MG/800MG DS TAB PO ONE (19:02)
[2024-05-31] MEDS ORDERED: BACT800T5 PO (19:08)
[2024-05-31 19:26] VITALS: BP 139/75; TEMP 98.4; O2SAT 100
== END 2024-05-31 19:29 | disposition home or self-care (01) ==
LOC: M ED 15:35
DX: L02.413 Cutaneous abscess of right upper limb (principal); L02.414 Cutaneous abscess of left upper limb; F17.210 Nicotine dependence, cigarettes, uncomplicated; F19.10 Other psychoactive substance abuse, uncomplicated; B17.10 Acute hepatitis C without hepatic coma; Z88.1 Allergy status to other antibiotic agents; Z79.899 Other long term (current) drug therapy

== ENCOUNTER → 2024-08-29 | Outpatient (REF) | payer OTHER, MEDICAID ==
[~2024-08-29] MED LIST changes: +ATOM80CA6; +CHLO100T30; +CHLOR50TA; +CLON0.2T; +DULO1CAP6; +GABA-1490; +NALO4SPR20; +RISP3TAB77; +TRAZ-257
[2024-08-29 18:03] LABS: BASO # 0.1 10^3/uL (0.0-0.2); BASO % 0.5 % (0.0-1.0); EOS # 0.1 10^3/uL (0.0-0.5); EOS % 0.5 % (0.0-3.0); HEMATOCRIT 48.7 % (42.0-52.0); HEMOGLOBIN 16.2 g/dl (13.5-17.5); LYMPH # 1.9 10^3/uL (1.5-5.0); LYMPH % 20.3 % (24.0-44.0); MEAN CORPUSCULAR HEMOGLOBIN 29.6 pg (27.0-33.0); MEAN CORPUSCULAR HGB CONC 33.3 g/dl (32.0-36.5); MONO # 0.7 10^3/uL (0.0-0.8); NEUTROPHILS # 6.7 10^3/uL (1.5-8.5); NEUTROPHILS % 71.2 % (36.0-66.0); PLATELET COUNT, AUTOMATED 428 10^3/uL (150-450); RED BLOOD COUNT 5.47 10^6/uL (4.30-6.10); WHITE BLOOD COUNT 9.4 10^3/uL (4.0-10.0)
[2024-08-29 18:35] LABS: BLOOD UREA NITROGEN 10 MG/DL (9-23); CALCIUM LEVEL 9.5 MG/DL (8.5-10.1); CARBON DIOXIDE LEVEL 30 MMOL/L (20-31); CHLORIDE LEVEL 102 MMOL/L (98-107); CHOLESTEROL LEVEL 200 MG/DL (<200); CHOLESTEROL RISK RATIO 4.38 (<5); GLOMERULAR FILTRATION RATE > 60.0 (>60); GLUCOSE, FASTING 88 MG/DL (60-100); HDL CHOLESTEROL 45.6 MG/DL (>40); NON-HDL-C 154.4 MG/DL; SODIUM LEVEL 139 MMOL/L (136-145); TRIGLYCERIDES LEVEL 267 MG/DL (<150)
== END ==
LOC: M LAB REF 16:35
PROVIDERS: ATTEND Nurse Practitioner Family
DX: L08.9 Local infection of the skin and subcutaneous tissue, unspecified (principal); F41.9 Anxiety disorder, unspecified; E66.3 Overweight; Z11.9 Encounter for screening for infectious and parasitic diseases, unspecified

== ENCOUNTER 2024-09-19 20:57 | Emergency (ER) | payer OTHER, MEDICAID ==
[~2024-09-19] VITALS: Ht 182.9 cm; Wt 90.7 kg
[2024-09-19 23:01] VITALS: TEMP 97.9
[2024-09-20 00:20] LABS: BASO % 0.3 % (0.0-1.0); EOS # 0.1 10^3/uL (0.0-0.5); EOS % 0.9 % (0.0-3.0); HEMATOCRIT 36.5 % (42.0-52.0); HEMOGLOBIN 12.4 g/dl (13.5-17.5); LYMPH # 1.2 10^3/uL (1.5-5.0); LYMPH % 12.8 % (24.0-44.0); MEAN CORPUSCULAR VOLUME 88.2 fl (80.0-96.0); MONO # 0.7 10^3/uL (0.0-0.8); MONO % 7.5 % (2.0-8.0); NEUTROPHILS % 78.1 % (36.0-66.0); PLATELET COUNT, AUTOMATED 271 10^3/uL (150-450); RED BLOOD COUNT 4.14 10^6/uL (4.30-6.10)
[2024-09-20 00:30] VITALS: BP 126/67
[2024-09-20 00:30] LABS: BLOOD UREA NITROGEN 17 MG/DL (9-23); CALCIUM LEVEL 8.1 MG/DL (8.5-10.1); CARBON DIOXIDE LEVEL 27 MMOL/L (20-31); CHLORIDE LEVEL 106 MMOL/L (98-107); CREATININE FOR GFR 0.87 MG/DL (0.70-1.30); GLOMERULAR FILTRATION RATE > 60.0 (>60); GLUCOSE, FASTING 90 MG/DL (60-100); POTASSIUM SERUM 3.5 MMOL/L (3.5-5.1); SODIUM LEVEL 140 MMOL/L (136-145)
[2024-09-20 00:32] LABS: ERYTHROCYTE SEDIMENTATION RATE 23 mm/hr (0-15)
[2024-09-20 01:39] VITALS: O2SAT 95
[2024-09-20] MEDS ORDERED: DOXY-441 PO (02:02)
[2024-09-20] MEDS: DOXYCYCLINE HYCLATE 100MG TABLET PO ONE (02:02)
== END 2024-09-20 02:19 | disposition home or self-care (01) ==
LOC: EDBD 20:57 → M ED 20:57
DX: L03.114 Cellulitis of left upper limb (principal); F41.9 Anxiety disorder, unspecified; F32.A Depression, unspecified; F17.210 Nicotine dependence, cigarettes, uncomplicated; F15.10 Other stimulant abuse, uncomplicated; F10.10 Alcohol abuse, uncomplicated; Z88.1 Allergy status to other antibiotic agents; Z79.899 Other long term (current) drug therapy; Z79.2 Long term (current) use of antibiotics

== ENCOUNTER → 2024-10-24 | Outpatient (CLI) | payer OTHER | LOC: M RAD 15:43 | PROVIDERS: ATTEND Nurse Practitioner Family | DX: D21.9 Benign neoplasm of connective and other soft tissue, unspecified (principal) ==

== ENCOUNTER 2024-12-23 17:47 | Emergency (ER) | payer OTHER ==
[~2024-12-23] VITALS: Ht 177.8 cm; Wt 101.3 kg
[~2024-12-23 17:47] MED LIST changes: +LAMO-18; -LAMO25TA4
[2024-12-23 19:28] LABS: BASO % 0.3 % (0.0-1.0); EOS # 0.2 10^3/uL (0.0-0.5); EOS % 1.7 % (0.0-3.0); HEMATOCRIT 35.6 % (42.0-52.0); HEMOGLOBIN 11.8 g/dl (13.5-17.5); LYMPH # 2.5 10^3/uL (1.5-5.0); LYMPH % 25.2 % (24.0-44.0); MEAN CORPUSCULAR HEMOGLOBIN 29.9 pg (27.0-33.0); MEAN CORPUSCULAR HGB CONC 33.1 g/dl (32.0-36.5); MEAN CORPUSCULAR VOLUME 90.1 fl (80.0-96.0); MONO # 1.3 10^3/uL (0.0-0.8); MONO % 12.8 % (2.0-8.0); NEUTROPHILS # 5.9 10^3/uL (1.5-8.5); NEUTROPHILS % 59.6 % (36.0-66.0); PLATELET COUNT, AUTOMATED 178 10^3/uL (150-450); RED BLOOD COUNT 3.95 10^6/uL (4.30-6.10); WHITE BLOOD COUNT 9.9 10^3/uL (4.0-10.0)
[2024-12-23 19:40] LABS: ERYTHROCYTE SEDIMENTATION RATE 29 mm/hr (0-15)
[2024-12-23 19:41] LABS: INR 0.95; PARTIAL THROMBOPLASTIN TIME 26.3 SECONDS (24.8-34.2); PROTHROMBIN TIME 12.9 SECONDS (12.5-14.5)
[2024-12-23 19:57] LABS: C REACTIVE PROTEIN QUANTITATIV 7.63 MG/DL (<1.0)
[2024-12-23 19:58] LABS: ALBUMIN 3.2 G/DL (3.2-5.2); ALKALINE PHOSPHATASE 85 U/L (40-129); ALT/SGPT 59 U/L (7.0-40); AST/SGOT 53 U/L (<34); BILIRUBIN,DIRECT < 0.1 MG/DL (<0.4); BILIRUBIN,TOTAL 0.3 MG/DL (0.3-1.2); BLOOD UREA NITROGEN 15 MG/DL (9-23); CALCIUM LEVEL 8.3 MG/DL (8.5-10.1); CARBON DIOXIDE LEVEL 32 MMOL/L (20-31); CHLORIDE LEVEL 106 MMOL/L (98-107); CREATININE FOR GFR 0.89 MG/DL (0.70-1.30); GLOMERULAR FILTRATION RATE > 90.0 (>60); GLUCOSE, FASTING 84 MG/DL (60-100); POTASSIUM SERUM 4.2 MMOL/L (3.5-5.1); SODIUM LEVEL 140 MMOL/L (136-145); TOTAL PROTEIN 6.5 G/DL (5.7-8.2)
[2024-12-23 20:27] LABS: PROCALCITONIN 0.08 ng/ml
[2024-12-23] MEDS: DALBAVANCIN 1,500 MG in D5W 250 ML IV ONE (21:07)
[2024-12-23 21:53] VITALS: BP 121/75; TEMP 98.9; O2SAT 100
== END 2024-12-23 21:55 | disposition home or self-care (01) ==
LOC: M ED 17:47 → EDBD 17:47 → M ED 21:55
DX: L03.113 Cellulitis of right upper limb (principal); B18.9 Chronic viral hepatitis, unspecified; F19.10 Other psychoactive substance abuse, uncomplicated; Z88.1 Allergy status to other antibiotic agents; Z79.2 Long term (current) use of antibiotics; Z79.899 Other long term (current) drug therapy
CPT/HCPCS: 73090; 80048; 80076; 83605; 84145; 85025; 85610; 85652; 85730; 86140; 87040; 93971; 96365; 99284; J0875

== ENCOUNTER 2025-03-01 10:51 | Emergency (ER) | payer OTHER ==
[~2025-03-01] VITALS: Ht 182.9 cm; Wt 95.3 kg
[2025-03-01] MEDS ORDERED: TRAZ-252 (11:01)
[2025-03-01] MEDS ORDERED: IBUP-1022 (11:01)
[2025-03-01] MEDS ORDERED: QUET100T2 (11:01)
[2025-03-01] MEDS ORDERED: METH10CO3 PO (11:01)
[2025-03-01] MEDS ORDERED: GABA-1171 (11:01)
[2025-03-01] MEDS ORDERED: CLON-412 (11:01)
[2025-03-01] MEDS ORDERED: ACET-683 (11:01)
[2025-03-01] MEDS: IPRATROPIUM 0.5 MG/ALBUTEROL 2.5 MG INH SOL UD 3 ML NEB ONE (12:24)
[2025-03-01] MEDS ORDERED: DOXY-441 PO (13:34)
[2025-03-01 13:44] VITALS: BP 119/75; TEMP 96.6; O2SAT 98
== END 2025-03-01 13:46 | disposition home or self-care (01) ==
LOC: M ED 10:51
DX: J20.9 Acute bronchitis, unspecified (principal); F31.30 Bipolar disorder, current episode depressed, mild or moderate severity, unspecified; Z88.1 Allergy status to other antibiotic agents; Z79.1 Long term (current) use of non-steroidal anti-inflammatories (NSAID); Z79.899 Other long term (current) drug therapy

== ENCOUNTER → 2025-05-01 | Outpatient (CLI) | payer OTHER ==
[~2025-05-01] MED LIST changes: +ACET-683; +CLON-412; +GABA-1171; -IBUP-1022 PO; +IBUP600T42; +IBUP600T42 PO; +METH10CO3 PO; +QUET100T2; +TRAZ-252
[2025-05-01 13:33] LABS: PLATELET COUNT, AUTOMATED 238 10^3/uL (150-450)
[2025-05-01 14:15] LABS: FREE T4 1.05 NG/DL (0.89-1.76)
[2025-05-01 14:25] LABS: ALT/SGPT 89 U/L (7.0-40); AST/SGOT 32 U/L (<34); CALCIUM LEVEL 9.1 MG/DL (8.5-10.1); CARBON DIOXIDE LEVEL 26 MMOL/L (20-31); CHLORIDE LEVEL 104 MMOL/L (98-107); CHOLESTEROL LEVEL 231 MG/DL (<200); CHOLESTEROL RISK RATIO 3.86 (<5); CREATININE FOR GFR 1.02 MG/DL (0.70-1.30); GLOMERULAR FILTRATION RATE > 90.0 (>60); LDL CHOLESTEROL 135.2 MG/DL (<100); NON-HDL-C 171.2 MG/DL; POTASSIUM SERUM 4.5 MMOL/L (3.5-5.1); SODIUM LEVEL 136 MMOL/L (136-145); TRIGLYCERIDES LEVEL 180 MG/DL (<150)
== END ==
LOC: M LAB 12:26
PROVIDERS: ATTEND Nurse Practitioner Family
DX: F31.81 Bipolar II disorder (principal)

== ENCOUNTER 2025-07-08 08:00 | Emergency (ER) | payer OTHER ==
[~2025-07-08] VITALS: Ht 182.9 cm; Wt 86.4 kg
[2025-07-08 08:14] VITALS: TEMP 96.7
[2025-07-08] MEDS ORDERED: METH10CO PO (08:22)
[2025-07-08 09:08] LABS: BARBITURATES URINE NEGATIVE (NEGATIVE); BENZODIAZEPINES URINE NEGATIVE (NEGATIVE); COCAINE METABOLITE URINE NEGATIVE (NEGATIVE); OPIATES URINE NEGATIVE (NEGATIVE); PHENCYCLIDINE URINE NEGATIVE (NEGATIVE)
[2025-07-08 09:09] LABS: AMPHETAMINES LEVEL URINE POSITIVE (NEGATIVE); CANNABINOIDS URINE POSITIVE (NEGATIVE); METHADONE URINE POSITIVE (NEGATIVE)
[2025-07-08] MEDS: NICOTINE 21 MG/24 HR 1 EA TRANSDERMAL TD ONE (10:55)
[2025-07-08] MEDS: LIDOCAINE W/EPINEPHrine 1% 20 ML VIAL SC ONE (11:45)
[2025-07-08] MEDS ORDERED: LUMA21CA PO (13:31)
[2025-07-08] MEDS ORDERED: CLON-412 PO (13:31)
[2025-07-08] MEDS ORDERED: LEXA5TAB13 PO (13:31)
[2025-07-08] MEDS ORDERED: HOME MED LIST COMPLETE! XX SCH (13:35)
[2025-07-08] MEDS ORDERED: CLIN150C17 PO (13:42)
[2025-07-08 13:44] VITALS: BP 112/59; O2SAT 98
[2025-07-08] MEDS: CLINDAMYCIN 150 MG CAPSULE PO ONE (13:45)
== END 2025-07-08 13:49 | disposition home or self-care (01) ==
LOC: M ED 08:00
DX: L02.414 Cutaneous abscess of left upper limb (principal); F15.10 Other stimulant abuse, uncomplicated; B18.2 Chronic viral hepatitis C; F41.9 Anxiety disorder, unspecified; F31.9 Bipolar disorder, unspecified; F17.210 Nicotine dependence, cigarettes, uncomplicated; Z88.1 Allergy status to other antibiotic agents; Z91.030 Bee allergy status; Z79.2 Long term (current) use of antibiotics; Z79.899 Other long term (current) drug therapy
CPT/HCPCS: 76882; 80307; 87641; 96372; 99283; J2060